=== PATIENT | male | born 1945 | race Caucasian/White ===

== ENCOUNTER 2023-02-22 07:13 | Emergency (ER) | payer MEDICARE, SELFPAY ==
--- NOTE | ~2023-02-22 | XR_ITS ---
EXAMINATION: XR ribs RT 2V w CXR 2V INDICATION: Chest pain after fall TECHNIQUE: PA and lateral views of the chest and 3 views of the right ribs were obtained. COMPARISON: 05/29/2018 FINDINGS: The lungs are free of acute opacities. No pleural effusion or pneumothorax. The cardiomedia stinal silhouette is normal. 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 There are age-indeterminate anterolateral fractures of the right eighth, ninth, a nd 10th ribs. 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 IMPRESSION: 1. No acute cardiopulmonary abnormality. 2. Age indeterminate fractures of the right eighth through 10th ribs. Reviewed, dictated and finalized at location A.
[2023-02-22 07:19] VITALS: BP 100/62; PULSE 76; RESP 16; TEMP 35.9; O2SAT 100
[2023-02-22 07:30] VITALS: BP 129/54; PULSE 50; RESP 20; TEMP 36.5; O2SAT 100
--- NOTE | 2023-02-22 08:04 | ED.FALL ---
HPI - Fall General Chief Complaint: Fall Stated Complaint: fall Time Seen by Provider: 02/22/23 07:26 History of Present Illness HPI Narrative: Patient is a 78-year-old male who presents ER with right-sided chest wall pain. Ongoing for last 3 days. He had been walking when he tripped and fell landing on his right arm which then struck his chest. He has had some pain to the lateral chest wall. Worse with deep breath and certain movements. Pain decreases if he finds a comfortable position. No relief with [id number] medication. No difficulty breathing. No runny nose sore throat or productive cough. No hemoptysis. No bruising to the chest wall. Related Data Allergies Allergy/AdvReac Type Severity Reaction Status Date / Time No Known Allergies Allergy Verified 02/22/23 07:29 Review of Systems Cardiovascular: Cardiovascular: Reports chest pain (Patient will), Denies rapid heart rate and Denies radiating jaw, neck or arm pain Respiratory: Respiratory: Denies cough, Denies dyspnea and Denies wheezing Gastrointestinal: Gastrointestinal: Denies abdominal pain, Denies nausea and Denies vomiting Musculoskeletal: Musculoskeletal: Denies arthralgias and Denies joint swelling PMFSH Past Medical History Medical History (Updated 02/22/23 @ 09:09 by Jeffrey Parkinson MD) Benign hypertension 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 HEAD: Normocephalic, atraumatic. ENT: Mucous membranes moist. CHEST: Clear to auscultation. No respiratory distress. Mild tenderness right lateral chest wall with palpation without crepitus/bruising/abrasions. HEART: Regular rate and rhythm. Normal peripheral pulses. ABDOMEN: Soft, nontender, nondistended. EXTREMITIES: Normal range of motion. No edema. SKIN: Warm, dry, no rash. NEURO: Alert and oriented x3. PSYCH: Normal mood and affect. Course Course Emergency Course: Patient reports possibility of old fractures being present as he had had a previous fall years ago that he did not get imaging form. Patient without hypoxia. Discussed pain control at home. Discharged with Tylenol with hydrocodone. Vital Signs Vital signs: Vital Signs Temperature 96.6 F L 02/22/23 07:19 Pulse Rate 76 02/22/23 07:19 Respiratory Rate 16 02/22/23 07:19 Blood Pressure 100/62 02/22/23 07:19 Pulse Oximetry 100 02/22/23 07:19 Oxygen Delivery Room Air 02/22/23 07:19 Temperature 97.7 F 02/22/23 07:30 Pulse Rate 72 02/22/23 08:42 Respiratory Rate 16 02/22/23 08:42 Blood Pressure 114/61 02/22/23 08:42 Pulse Oximetry 99 02/22/23 08:42 Oxygen Delivery Room Air 02/22/23 07:19 MDM - Fall Imaging Data Radiologist's impression: ITS Impressions Ribs w/Chest X-Ray 02/22/23 07:55 IMPRESSION: 1. No acute cardiopulmonary abnormality. 2. Age indeterminate fractures of the right eighth through 10th ribs. Discharge Plan Discharge Clinical Impression: Pain in rib Patient Disposition: Home, Self-Care Condition: Stable Instructions: Rib Fracture (ED) Additional Instructions: Return the ER if you cannot breathe, you cannot keep down food or water, you have new fever with productive cough, you have additional concerns. Prescriptions: New hydrocodone-acetaminophen 5-325 mg tablet 1 tablet PO Q6H PRN (Reason: pain) Qty: 10 0RF Follow-up/Referrals:
[2023-02-22 08:42] VITALS: BP 114/61; PULSE 72; RESP 16; O2SAT 99
[2023-02-22 08:51] VITALS: PULSE 73; RESP 15; O2SAT 98
[2023-02-22 09:22] VITALS: BP 113/69; PULSE 68; RESP 16
== END 2023-02-22 09:25 | disposition home or self-care (01) ==
PROVIDERS: Emergency Provider Emergency Medicine
DX: S29.9XXA Unspecified injury of thorax, initial encounter (principal); I50.9 Heart failure, unspecified; I11.0 Hypertensive heart disease with heart failure; E24.9 Cushing's syndrome, unspecified; E78.2 Mixed hyperlipidemia; E23.2 Diabetes insipidus; K21.9 Gastro-esophageal reflux disease without esophagitis; W01.0XXA Fall on same level from slipping, tripping and stumbling without subsequent striking against object, initial encounter
CPT/HCPCS: 71046; 71100; 99283

== ENCOUNTER 2025-03-25 08:32 | Outpatient (CLI) | payer MEDICARE, SELFPAY ==
[2025-03-25 12:39] LABS: Basophils Absolute Auto 0.1 K/mm3 (0.0-0.1); Basophils Percent Auto 0.8 % (0.2-1.2); Eosinophils Percent Auto 0.6 % (0-4.4); Hemoglobin 14.9 g/dL (14.0-18.0); Immature Granulocyte Absolute 0.09 K/mm3 (0.00-0.031); Immature Granulocyte Percent A 1.4 % (0-0.5); Lymphocytes Absolute Auto 1.77 K/mm3 (0.9-3.2); Lymphocytes Percent Auto 27.4 % (18.3-44.2); Mean Corpuscular HGB Conc 30.4 g/dl (32-36); Mean Corpuscular Hemoglobin 30.7 pg (26-34); Mean Platelet Volume 12.3 fl (7.4-10.4); Monocytes Absolute Auto 0.8 K/mm3 (0.1-0.6); Monocytes Percent Auto 12.1 % (2.6-8.5); Neutrophils Absolute Auto 3.7 K/mm3 (1.3-6.7); Neutrophils Percent Auto 57.7 % (45.5-73.1); Platelet Count Result 217 k/mm3 (150-375); Red Blood Count 4.85 M/mm3 (4.6-6.20); Red Cell Distribution Width 15.6 % (11.5-14.5); White Blood Count 6.5 K/mm3 (4.5-10.0)
[2025-03-25 12:44] LABS: Add Urine Microscopic? NO; Appearance Urine Clear (Clear); Bilirubin Urine Negative (Negative); Blood Urine Negative (Negative); Color Urine Yellow (Yellow); Glucose Urine UA 3+ mg/dL (Negative); Ketones Urine Negative (Negative); Leukocyte Esterase Ur Negative LEU/UL (Negative); Nitrate Urine Negative (Negative); Protein Urine Negative (Negative); Specific Grav Ur 1.013 (1.001-1.035); Urobilinogen Urine 0.2 mg/dL (<2.0)
[2025-03-25 12:53] LABS: Alanine Aminotransferase 32 U/L (6-50); Albumin Level 3.9 g/dL (3.5-5.1); Alkaline Phosphatase 72 U/L (38-126); Anion Gap 7 mmol/L (4-12); Aspartate Amino Transferase 58 U/L (17-59); Bilirubin,Total 0.4 mg/dL (0.2-1.3); Blood Urea Nitrogen 27 mg/dL (9-20); Carbon Dioxide 28 mmol/L (22-30); Chloride 105 mmol/L (98-107); Cholesterol 149 mg/dL (0-200); Estimated Glomerular Filt Rate 57; Glucose 95 mg/dL (65-110); HDL Direct 46 mg/dL; Magnesium 2.5 mg/dL (1.6-2.3); Potassium 4.4 mmol/L (3.4-5.0); Sodium 140 mmol/L (137-145); Total Protein 7.4 g/dL (6.3-8.2); Triglycerides 97 mg/dL (<150)
[2025-03-25 12:59] LABS: NT Pro B Type Natriuretic Pept 361 pg/mL (19.9-100)
[2025-03-25 13:04] LABS: LDL Cholesterol Direct 75 mg/dL
[2025-03-25 13:11] LABS: Vitamin D 25 Hydroxy 61.5 ng/mL
[2025-03-25 13:15] LABS: Erythrocyte Sedimentation Rate 13 mm/hr (0-20)
[2025-03-25 13:20] LABS: Prostate Specific Antigen 0.3 ng/mL (< OR = 4.0)
[2025-03-25 14:04] LABS: Hemoglobin A1C. 5.9 % (<5.7)
== END 2025-03-25 08:33 | disposition home or self-care (01) ==
LOC: ANHGOSHLAB 08:34
DX: I10 Essential (primary) hypertension (principal); Z12.5 Encounter for screening for malignant neoplasm of prostate; E03.9 Hypothyroidism, unspecified; M81.0 Age-related osteoporosis without current pathological fracture; R73.03 Prediabetes
CPT/HCPCS: 36415; 80053; 80061; 81003; 82306; 83036; 83735; 83880; 84153; 84443; 85025; 85652